=== PATIENT | male | born 1985 | race Caucasian/White ===

== ENCOUNTER 2016-08-07 23:30 | Inpatient (IN) | payer OTHER ==
[~2016-08-07] VITALS: Ht 193 cm; Wt 186.9 kg
[2016-08-08] MEDS ORDERED: ONDANSETRON 2MG/ML, 2ML IVPush ONE
[2016-08-08] MEDS ORDERED: SODIUM CHLORIDE FLUSH 10ML SYR IVF ONE
[2016-08-08] MEDS ORDERED: SODIUM CHLORIDE 0.9% 1,000ML IVBOLUS ONE
[2016-08-08] MEDS ORDERED: MORPHINE SULFATE 4 MG/ML, 1ML ONE ×2 (00:16→01:39)
[2016-08-08] MEDS ORDERED: ONDANSETRON 2MG/ML, 2ML ONE ×2 (00:16→07:33)
[2016-08-08] MEDS: MORPHINE SULFATE 4 MG/ML, 1ML IVPush PRN ×2 (00:28→01:45)
[2016-08-08 01:01] LABS: ASPARTATE AMINO TRANSFERASE 17 U/L (15-37); BLOOD UREA NITROGEN 12 mg/dL (7-18)
[2016-08-08] MEDS ORDERED: CEFOTETAN PMX 1GM/50ML 50 ML IV ONE (01:30)
[2016-08-08] MEDS ORDERED: SODIUM CHLORIDE 0.9% 1,000 ML IV ONE (01:35)
[2016-08-08] MEDS ORDERED: CEFOTETAN PMX 1GM/50ML 50 ML ONE (01:40)
[2016-08-08] MEDS ORDERED: SODIUM CHLORIDE FLUSH 10ML SYR IVF PRN (02:00)
[2016-08-08] MEDS ORDERED: MORPHINE SULFATE 4 MG/ML, 1ML IVPush PRN (02:00)
[2016-08-08 02:29] VITALS: BP 132/70
[2016-08-08 04:17] VITALS: BP 127/67
[2016-08-08] MEDS ORDERED: ACETAMINOPHEN 325 MG TABLET PO ONE (04:30)
[2016-08-08 05:18] VITALS: BP 126/68
[2016-08-08] MEDS ORDERED: BUPIVACAINE/PF-EPI 0.5% 1:200K ONE (06:22)
[2016-08-08] MEDS ORDERED: BUPIVACAINE/PF 0.5% ONE (06:22)
[2016-08-08 06:50] VITALS: BP 132/67
[2016-08-08] MEDS ORDERED: FENTANYL PF 250 MCG/5ML ONE (07:09)
[2016-08-08] MEDS ORDERED: MIDAZOLAM 1 MG/ML, 2ML ONE (07:09)
[2016-08-08] MEDS ORDERED: SCOPOLAMINE PATCH, 1.5MG PATCH.TD72 TD ONE (07:19)
[2016-08-08] MEDS ORDERED: CEFOTETAN 2 GM ONE (07:33)
[2016-08-08] MEDS ORDERED: PROPOFOL 10 MG/ML, 20ML ONE (07:33)
[2016-08-08] MEDS ORDERED: SUCCINYLCHOLINE 20 MG/ML, 10ML ONE (07:33)
[2016-08-08] MEDS ORDERED: DEXAMETHASONE 4 MG/ML, 1ML ONE (07:33)
[2016-08-08] MEDS ORDERED: GLYCOPYRROLATE 0.2MG/1ML ONE (07:33)
[2016-08-08] MEDS ORDERED: ROCURONIUM 10 MG/ML ONE (07:33)
[2016-08-08] MEDS ORDERED: NEOSTIGMINE 1 MG/ML, 10ML ONE (07:33)
[2016-08-08] MEDS ORDERED: LABETALOL 5MG/ML, 20ML IV PRN (08:30)
[2016-08-08] MEDS ORDERED: PROMETHAZINE 25 MG/ML, 1ML IV PRN (08:30)
[2016-08-08] MEDS ORDERED: HYDROmorphone 1 MG/ML, 1ML IV PRN (08:30)
[2016-08-08] MEDS ORDERED: ACETAMINOPHEN 325 MG TABLET PO PRN ×2 (08:30→11:30)
[2016-08-08] MEDS ORDERED: EPHEDRINE 50 MG/ML, 1ML IVPush PRN (08:30)
[2016-08-08] MEDS ORDERED: hydrALAzine 20 MG/ML, 1ML IV PRN ×2 (08:30→11:30)
[2016-08-08] MEDS ORDERED: OXYcodone 5 MG/5 ML ORAL.SOL UDC PO PRN (08:30)
[2016-08-08] MEDS ORDERED: HYDROcodone/APAP 7.5-325MG/15ML UDC PO PRN (08:30)
[2016-08-08] MEDS ORDERED: KETOROLAC 30 MG/1 ML IV PRN ×2 (08:30→11:30)
[2016-08-08] MEDS ORDERED: FENTANYL PF 100 MCG/2ML IV PRN (08:30)
[2016-08-08] MEDS ORDERED: ONDANSETRON 2MG/ML, 2ML IVPush PRN (08:30)
[2016-08-08] MEDS ORDERED: MEPERIDINE/PF 25MG/0.5ML IVPush PRN (08:30)
[2016-08-08] MEDS ORDERED: MIDAZOLAM 1 MG/ML, 2ML IV PRN (08:30)
[2016-08-08] MEDS ORDERED: BUPIVACAINE/PF-EPI 0.5% 1:200K INFIL ONE (09:10)
[2016-08-08] MEDS ORDERED: FENTANYL PF 100 MCG/2ML ONE (09:16)
[2016-08-08] MEDS ORDERED: KETOROLAC 30 MG/1 ML ONE (09:55)
[2016-08-08] MEDS ORDERED: OXYcodone 5 MG/5 ML ORAL.SOL UDC ONE (09:55)
[2016-08-08] MEDS ORDERED: ENOXAPARIN 30 MG/0.3 ML SQ SCH (11:30)
[2016-08-08] MEDS ORDERED: DO NOT STOP ANTIBIOTICS AFTER 24HRS MC SCH (11:30)
[2016-08-08] MEDS ORDERED: ACETAMINOPHEN 650 MG SUPP PR PRN (11:30)
[2016-08-08] MEDS ORDERED: LACTATED RINGERS 500 ML IV PRN (11:30)
[2016-08-08] MEDS: POTASSIUM CHLORIDE 20 MEQ in D5%-LACTATED RINGERS 1,000 ML IV SCH ×2 (11:48→20:43)
[2016-08-08 14:00] VITALS: BP 153/66
[2016-08-08] MEDS: ENOXAPARIN 30 MG/0.3 ML SQ SCH (18:33)
[2016-08-08 19:11] VITALS: BP 104/64
[2016-08-08] MEDS: CEFOTETAN PMX 2GM/50ML 50 ML IVPB SCH (20:43)
[2016-08-08] MEDS: HYDROcodone/APAP 5/325 TABLET PO PRN (20:44)
[2016-08-09 01:25] VITALS: BP 98/58
[2016-08-09] MEDS: HYDROcodone/APAP 5/325 TABLET PO PRN ×3 (01:34→09:44)
[2016-08-09] MEDS: POTASSIUM CHLORIDE 20 MEQ in D5%-LACTATED RINGERS 1,000 ML IV SCH ×3 (05:45→22:25)
[2016-08-09] MEDS: ENOXAPARIN 30 MG/0.3 ML SQ SCH ×2 (05:46→18:10)
[2016-08-09 07:42] VITALS: BP 101/65
[2016-08-09] MEDS: CEFOTETAN PMX 2GM/50ML 50 ML IVPB SCH ×2 (09:44→21:48)
[2016-08-09 15:30] VITALS: BP 124/69
[2016-08-09] MEDS: ACETAMINOPHEN 500 MG TABLET PO SCH (19:20)
[2016-08-09 20:03] VITALS: BP 113/70
[2016-08-09] MEDS: PIPERACILLIN/TAZO 3.375 GM in SODIUM CHLORIDE 0.9% 50 ML IV SCH (22:30)
[2016-08-10] MEDS: ACETAMINOPHEN 500 MG TABLET PO SCH ×4 (00:48→20:59)
[2016-08-10 01:59] VITALS: BP 102/57
[2016-08-10] MEDS: PIPERACILLIN/TAZO 3.375 GM in SODIUM CHLORIDE 0.9% 50 ML IV SCH ×4 (04:41→22:47)
[2016-08-10] MEDS: ENOXAPARIN 30 MG/0.3 ML SQ SCH ×2 (06:35→18:21)
[2016-08-10] MEDS ORDERED: ONDANSETRON 2MG/ML, 2ML ONE (06:40)
[2016-08-10] MEDS ORDERED: ONDANSETRON 2MG/ML, 2ML IVPush PRN (07:00)
[2016-08-10 07:13] VITALS: BP 149/76
[2016-08-10] MEDS: OXYcodone IR 5MG TABLET PO PRN ×4 (09:29→22:47)
[2016-08-10] MEDS: POTASSIUM CHLORIDE 20 MEQ in D5%-LACTATED RINGERS 1,000 ML IV SCH (10:57)
[2016-08-10 14:55] VITALS: BP 118/72
[2016-08-10 21:27] VITALS: BP 124/75
[2016-08-11 00:30] VITALS: BP 121/66
[2016-08-11] MEDS: OXYcodone IR 5MG TABLET PO PRN ×5 (02:50→20:59)
[2016-08-11] MEDS: ACETAMINOPHEN 500 MG TABLET PO SCH ×4 (02:50→20:59)
[2016-08-11] MEDS: PIPERACILLIN/TAZO 3.375 GM in SODIUM CHLORIDE 0.9% 50 ML IV SCH ×4 (05:05→22:37)
[2016-08-11] MEDS: ENOXAPARIN 30 MG/0.3 ML SQ SCH ×2 (06:43→17:18)
[2016-08-11] MEDS: POTASSIUM CHLORIDE 20 MEQ in D5%-LACTATED RINGERS 1,000 ML IV SCH (06:43)
[2016-08-11 07:25] LABS: BLOOD UREA NITROGEN 5 mg/dL (7-18)
[2016-08-11 07:29] VITALS: BP 99/55
[2016-08-11 13:21] VITALS: BP 132/69
[2016-08-11 18:47] VITALS: BP 107/66
[2016-08-12] MEDS: POTASSIUM CHLORIDE 20 MEQ in D5%-LACTATED RINGERS 1,000 ML IV SCH ×3 (00:02→16:21)
[2016-08-12 00:52] VITALS: BP 125/67
[2016-08-12] MEDS: OXYcodone IR 5MG TABLET PO PRN ×6 (01:06→22:11)
[2016-08-12] MEDS: ACETAMINOPHEN 500 MG TABLET PO SCH ×4 (03:38→22:11)
[2016-08-12] MEDS: PIPERACILLIN/TAZO 3.375 GM in SODIUM CHLORIDE 0.9% 50 ML IV SCH ×4 (05:09→22:11)
[2016-08-12] MEDS: ENOXAPARIN 30 MG/0.3 ML SQ SCH ×2 (05:09→17:59)
[2016-08-12 06:21] LABS: BLOOD UREA NITROGEN 4 mg/dL (7-18)
[2016-08-12 06:56] VITALS: BP 120/72
[2016-08-12 12:34] VITALS: BP 124/71
[2016-08-12 19:08] VITALS: BP 128/73
[2016-08-13 00:56] VITALS: BP 126/68
[2016-08-13] MEDS: POTASSIUM CHLORIDE 20 MEQ in D5%-LACTATED RINGERS 1,000 ML IV SCH ×2 (00:58→07:21)
[2016-08-13] MEDS: OXYcodone IR 5MG TABLET PO PRN ×3 (03:12→11:46)
[2016-08-13] MEDS: ACETAMINOPHEN 500 MG TABLET PO SCH ×2 (03:12→08:57)
[2016-08-13] MEDS: PIPERACILLIN/TAZO 3.375 GM in SODIUM CHLORIDE 0.9% 50 ML IV SCH (04:29)
[2016-08-13] MEDS: ENOXAPARIN 30 MG/0.3 ML SQ SCH (05:54)
[2016-08-13 08:21] VITALS: BP 117/67
[2016-08-13] MEDS ORDERED: HYDR-3240 PO (09:53)
[2016-08-13] MEDS ORDERED: CIPR500T87 PO (09:54)
[2016-08-13] MEDS ORDERED: DOCU-30 PO (09:54)
[2016-08-13] MEDS ORDERED: ONDA4TAB10 PO (09:54)
[2016-08-13] MEDS ORDERED: METR500T PO (09:55)
[2016-08-13 11:45] VITALS: BP 141/82
== END 2016-08-13 12:00 | disposition home or self-care (01) | DRG 339 ==
LOC: ED 23:59 → EDIP 08-08 01:35 → 4NOR 08-08 02:19
PROVIDERS: ADMIT Surgery; ATTEND Surgery
PROC: 0DTJ4ZZ Resection of Appendix, Percutaneous Endoscopic Approach (ICD-10-PCS; principal; 2016-08-08 07:30)
DX: K35.3 Acute appendicitis with localized peritonitis (principal); Z68.42 Body mass index [BMI] 45.0-49.9, adult; I96 Gangrene, not elsewhere classified; D72.829 Elevated white blood cell count, unspecified; E66.01 Morbid (severe) obesity due to excess calories; Z88.1 Allergy status to other antibiotic agents
CPT/HCPCS: 36415; 74177; 80048; 80053; 81001; 83605; 83690; 85025; 87040; 87086; 88304; 96361; 96374; 96375; C1729; J1100; J1650; J1885; J2250; J2405; J2543; J2704; J2710; J3010; J3480; J3490; J0330; J7030; J7121; S0074